=== PATIENT | female | born 1970 | race Caucasian/White ===

== ENCOUNTER 2018-06-13 10:28 | Emergency (ER) | payer OTHER ==
[2018-06-13 10:49] VITALS: BP 116/81; PULSE 98; RESP 16; TEMP 97.8; O2SAT 99
[2018-06-13] MEDS ORDERED: BACITRACIN 500 U/GM OIN TOP ONE ×2 (11:11)
== END 2018-06-13 11:16 | disposition home or self-care (01) | DRG 605 ==
LOC: ED 10:28
DX: S81.052A Open bite, left knee, initial encounter (principal); W54.0XXA Bitten by dog, initial encounter
CPT/HCPCS: 99282; 99283; A6402; A9270-GY